=== PATIENT | male | born 2000 | race African-American/Black ===

== ENCOUNTER 2019-04-05 19:26 | Emergency (ER) | payer MEDICAID ==
[~2019-04-05] VITALS: Ht 177.8 cm; Wt 97.0 kg
[2019-04-05 19:41] VITALS: BP 130/85
== END 2019-04-06 00:19 | disposition home or self-care (01) ==
LOC: ER 19:26
DX: H30.92 Unspecified chorioretinal inflammation, left eye (principal); J45.909 Unspecified asthma, uncomplicated
CPT/HCPCS: 99281